=== PATIENT | female | born 1980 | race Caucasian/White ===

== ENCOUNTER → 2017-12-22 | Emergency (ER) | payer BC ==
[~2017-12-22] VITALS: Ht 167.6 cm; Wt 89.4 kg
[~2017-12-22] MED LIST: BACTRIM DS TAB1 EACH PO; CEPHALEXIN500 MG PO; CLINDAMYCIN HC150 MG PO; IBUPROFEN400 MG PO; LORAZEPAM1 MG PO; MACROBID 100 M100 MG PO; NORCO 5-325 TA1 EACH PO; PANTOPRAZOLE SO40 MG PO; PENICILLIN V P500 MG PO; PERCOCET 5-3251 EACH PO; PREDNISONE20 MG PO; SULFAMETHOXAZO1 EAC1 PO; TRAMADOL HCL50 MG PO; TYLENOL EXTRA500 MG PO; ZOFRAN ODT4 MG SL
--- OUTSIDE RECORDS SUMMARY | ~2017-12-22 | XMS ---
Demographics + + + | Address | [address] | | | [place] [address] | + + + | Preferred Language | Unknown | + + + | Marital Status | Unknown | + + + | Faith Affiliation | Unknown | + + + | Race | Unknown | + + + | Ethnic Group | Unknown | + + + Author + + + | Author | [facility] | + + + | Organization | [facility] | + + + | Address | [address] | | | [place] [address] | + + + | Phone | | + + + Care Team Providers + + + + | Care Ordnance Truck Installation Supervisor Name | Role | Phone | + + + + Unavailable | Unavailable | + + + + PROBLEMS +---------+ + + +--------+ + + | Type | Condition | ICD9-CM | TTE06-GL | Onset | Condition | SNOMED | | | | Code | Code | Dates | Status | Code | +---------+ + + +--------+ + + | Problem | Allergic | Z88.9 | | | Active | [id number] | | | condition | | | | | | +---------+ + + +--------+ + + | Problem | Acute | | J01.40 | | Active | [id number] | | | pansinusit | | | | | | | | is | | | | | | +---------+ + + +--------+ + + | Problem | Cellulitis | 682.2 | | | Active | [id number] | | | of back, | | | | | | | | except | | | | | | | | buttock | | | | | | +---------+ + + +--------+ + + | Problem | Serous | H65.90 | | | Active | [id number] | | | otitis | | | | | | | | media | | | | | | +---------+ + + +--------+ + + | Problem | Muscle | S46.919A | | | Active | [id number] | | | strain, | | | | | | | | upper arm | | | | | | +---------+ + + +--------+ + + ALLERGIES + + + + +--------+ | Substance | Reaction | Event Type | Date | Status | + + + + +--------+ | Iodine | fever and | Drug Allergy | August, | Active | | | swelling | | | | + + + + +--------+ | Biaxin | hives, closes | Drug Allergy | August, | Active | | | throat | | | | + + + + +--------+ SOCIAL HISTORY No smoking Hx information available PLAN OF CARE + +---------+ | Activity | Details | + +---------+ +---+ | | +---+ + + + | Follow Up | prn, 2 - 3 Days with your regular care | | | provider Reason:null | + + + VITAL SIGNS + + + + | Height | 65.5 in | 2016-09-14 | + + + + | Weight | 198 lbs | 2016-09-14 | + + + + | BMI | 32.44 kg/m2 | 2016-09-14 | + + + + | Temperature | 97.8 degrees Fahrenheit | 2016-09-14 | + + + + | Heart Rate | 74 /min | 2016-09-14 | + + + + | Blood pressure systolic | 115 mm Hg | 2016-09-14 | + + + + | Blood pressure diastolic | 77 mm Hg | 2016-09-14 | + + + + MEDICATIONS + + + + + + + +--------+ | Medicati | Instruct | Dosage | Frequenc | Start | End Date | Duration | Status | | on | ions | | y | Date | | | | + + + + + + + +--------+ | Ibuprofe | Orally | 1 tablet | 8h | | | | Active | | n 600 MG | Three | | | | | | | | | times a | | | | | | | | | day | | | | | | | + + + + + + + +--------+ | Amoxicil | | | | | | | Active | | [place] | | | | | | | | + + + + + + + +--------+ | Tylenol | | | | | | | Active | + + + + + + + +--------+ | doxycycl | by mouth | one | 12h | 30 August, | 9 Chidi, | 10 | Active | | ine | every | | | 2017 | 2017 | day(s) | | | 100mg | 12 hrs | | | | | | | + + + + + + + +--------+ | Benadryl | | | | | | | Active | + + + + + + + +--------+ | Flonase | | | | | | | Active | + + + + + + + +--------+ RESULTS No Results PROCEDURES + + + + + | Procedure | Date Ordered | Related Diagnosis | Body Site | + + + + + | Est Level IV | September 14, 2016 | | | | Extended | | | | + + + + + IMMUNIZATIONS No Known Immunizations"
== END ==
LOC: ED 10:10
DX: Z53.21 Procedure and treatment not carried out due to patient leaving prior to being seen by health care provider (principal); S60.912A Unspecified superficial injury of left wrist, initial encounter

== ENCOUNTER 2020-02-26 09:10 | Emergency (ER) | payer OTHER ==
[~2020-02-26] VITALS: Ht 167.6 cm; Wt 89.4 kg
[2020-02-26] MEDS ORDERED: PRILOSEC2.5 MG PO (09:28)
[2020-02-26] MEDS ORDERED: DICYCLOMINE HCL20 MG PO (14:02)
[2020-02-26] MEDS ORDERED: ONDANSETRON ODT8 MG PO (14:02)
== END 2020-02-26 14:28 | disposition home or self-care (01) ==
LOC: ED 09:10
DX: R10.31 Right lower quadrant pain (principal); Z87.891 Personal history of nicotine dependence; Z88.1 Allergy status to other antibiotic agents; Z88.8 Allergy status to other drugs, medicaments and biological substances; Z79.899 Other long term (current) drug therapy
CPT/HCPCS: 36415; 74177; 80053; 81001; 83690; 84703; 85025; 87491; 87591; 99284-25; J2405; J7030; Q9967